=== PATIENT | female | born 1985 | race Hispanic/Latino ===

== ENCOUNTER → 2021-10-13 | Outpatient (CLI) | payer OTHER ==
[~2021-10-13] VITALS: Ht 2.5 cm; Wt 133.4 kg
== END ==
LOC: DTH 09:59
PROVIDERS: ATTEND Surgery
DX: Z71.3 Dietary counseling and surveillance (principal); G47.33 Obstructive sleep apnea (adult) (pediatric); Z68.43 Body mass index [BMI] 50.0-59.9, adult
CPT/HCPCS: 97802

== ENCOUNTER → 2021-11-11 | Outpatient (CLI) | payer OTHER | END | disposition home or self-care (01) | LOC: EDUNIT# 11-03 11:00 → DTH 10:33 | PROVIDERS: ATTEND Surgery | DX: Z71.3 Dietary counseling and surveillance (principal); G47.33 Obstructive sleep apnea (adult) (pediatric); E66.01 Morbid (severe) obesity due to excess calories; M19.91 Primary osteoarthritis, unspecified site | CPT/HCPCS: 97803 ==

== ENCOUNTER → 2021-12-09 | Outpatient (CLI) | payer OTHER | END | disposition home or self-care (01) | LOC: EDUNIT# 12-01 09:00 → DTH 09:50 | PROVIDERS: ATTEND Surgery | DX: Z71.3 Dietary counseling and surveillance (principal); G47.33 Obstructive sleep apnea (adult) (pediatric); E66.09 Other obesity due to excess calories; Z68.43 Body mass index [BMI] 50.0-59.9, adult | CPT/HCPCS: 97803 ==

== ENCOUNTER 2022-02-15 06:33 | Day surgery (SDC) | payer MEDICAID ==
[2022-02-15 07:23] VITALS: BP 124/77
[2022-02-15] MEDS ORDERED: LIDOCAINE HCL 1% 20 ML VIAL ONE (08:16)
[2022-02-15] MEDS ORDERED: PROPOFOL 10 MG/ML 20ML VIAL IV ONE (08:16)
[2022-02-15 08:30] VITALS: BP 104/51
[2022-02-15 08:40] VITALS: BP 91/51
[2022-02-15 08:50] VITALS: BP 118/57
[2022-02-15 08:55] VITALS: BP 131/59
[2022-02-15 09:00] VITALS: BP 104/69
== END 2022-02-15 09:15 | disposition home or self-care (01) ==
LOC: DAH 06:33
PROVIDERS: ATTEND Surgery
DX: K21.9 Gastro-esophageal reflux disease without esophagitis (principal); E66.01 Morbid (severe) obesity due to excess calories; Z98.891 History of uterine scar from previous surgery; Z82.49 Family history of ischemic heart disease and other diseases of the circulatory system; Z83.3 Family history of diabetes mellitus; Z68.43 Body mass index [BMI] 50.0-59.9, adult
CPT/HCPCS: 71045; 87426; 84703; 36415; 93005; 43235; J3490; A4620; A4215; A4223; A4221; A4663; J7030; A4606; J2704

== ENCOUNTER → 2022-03-01 | Outpatient (CLI) | payer OTHER | END | disposition home or self-care (01) | LOC: DTH 11:19 | PROVIDERS: ATTEND Surgery | DX: Z71.3 Dietary counseling and surveillance (principal); G47.33 Obstructive sleep apnea (adult) (pediatric); E66.09 Other obesity due to excess calories; Z68.43 Body mass index [BMI] 50.0-59.9, adult | CPT/HCPCS: 97803 ==